=== PATIENT | female | born 1945 | race Caucasian/White ===

== ENCOUNTER 2020-05-07 10:00 | Outpatient (RCR) | payer MEDICARE, SELFPAY ==
[2016-07-09 22:55] VITALS: BMI 27.0
[2020-05-07] MEDS: COVID-19 VACC, MRNA(PFIZER)/PF 30 MCG/0.3 ML SYRINGE IM (07:45)
[2020-05-28] MEDS: COVID-19 VACC, MRNA(PFIZER)/PF 30 MCG/0.3 ML SYRINGE IM (07:34)
== END 2020-08-06 23:59 ==
LOC: IMMUN 10:00
PROVIDERS: PCP Student in an Organized Health Care Education/Training Program; Referring Provider Family Medicine; Visit Provider Family Medicine
DX: Z23 Encounter for immunization (principal)
CPT/HCPCS: 0001A; 0002A; 91300

== ENCOUNTER 2022-05-20 11:34 | Emergency (ER) | payer MEDICARE, SELFPAY ==
[2022-05-20 11:36] VITALS: BP 142/74; PULSE 83; RESP 14; TEMP 36.6; O2SAT 98; BMI 24.3
[2022-05-20 14:19] LABS: Bacteria 0 SEEN /hpf (None Seen); Mucous, Urine 0 SEEN /hpf (<or=2+); Red Blood Cells-Urine 0 SEEN /hpf (0-5); White Blood Cells 0 SEEN /hpf (0-5)
[2022-05-20 14:20] LABS: Color, Urine Yellow (Yellow); Glucose, Dipstick Normal (Normal); Ketone-Dipstick Negative (Negative); Leukocyte Esterase-Dipstick 25 /ul (Negative); Nitrite-Dipstick Negative (Negative); Occult Blood-Urine Negative /ul (Negative); Protein-Dipstick Negative (Negative); Urine Bilirubin Dipstick Negative (Negative); Urine Clarity Sl. Cloudy (Clear); Urine Urobilinogen Normal (Normal)
[2022-05-20 14:21] LABS: Absolute Neutrophil Count 4.1 X10^3/uL (2.0-7.7); Basophil# 0.05 X10^3/uL; Basophil% 0.7 % (0-1); Eosinophil# 0.15 X10^3/uL; Eosinophils% 2.1 % (0-5); Hematocrit 43.3 % (37-47); Hemoglobin 13.8 g/dL (12.0-15.0); Lymphocyte % 34.3 % (19-41); Mean Corp Hgb Conc 31.9 g/dL (32-36); Mean Corpuscular Hgb 31.2 pg (27.0-32.0); Mean Corpuscular Volume 97.7 fL (81-99); Mean Platelet Vol. 11.6 fl (6.2-12.0); Monocyte# 0.49 X10^3/uL; Monocyte% 6.7 % (0-10); NRBC Flagged by Analyzer 0 % (0-5); Neutrophil # 4.05 X10^3/uL (2.7-7.7); Neutrophil % 55.7 % (47-70); Platelet Count 214 K/mm3 (150-450); RBC Distribution Width CV 13.3 % (11.6-14.6); RBC Distribution Width SD 47.9 fl (35.1-43.9); Red Blood Count 4.43 M/mm3 (4.2-5.4); White Blood Count 7.3 K/mm3 (4.4-11.0)
[2022-05-20 14:27] LABS: Squamous Epithelial Cells - UA 0-5 SEEN /hpf (5-10)
[2022-05-20 14:28] LABS: Calcium Oxalate Crystals Ur 2+ /hpf (<or=2+)
[2022-05-20 14:36] LABS: AST(SGOT) 28 U/L (15-37); Alanine Aminotransfer ALT/SGPT 37 U/L (13-56); Albumin, Serum 3.8 g/dL (3.2-5.0); Alkaline Phosphatase 77 U/L (45-117); Anion Gap 7 (5-15); BUN 17 mg/dL (7-18); BUN/Creat Ratio 17.4 RATIO (10-20); Calcium,Total 9.6 mg/dL (8.5-10.1); Chloride 108 mmol/L (98-107); Creatinine, Serum 0.98 mg/dL (0.55-1.02); EST Glomerular Filtration Rate 59 mL/min (>60); Est Glom Filt Rate - Afr Amer 71 mL/min (>60); Estimated Creatinine Clearance 40.85 ml/min; Globulin 3.8 g/dL (2.2-4.2); Glucose 91 mg/dL (74-106); Potassium 3.4 mmol/L (3.5-5.1); Protein, Total 7.6 g/dL (6.4-8.2); Sodium Level 141 mmol/L (136-145)
--- NOTE | 2022-05-20 15:04 | EDS_ITS ---
HPI HPI - GI History of Present Illness Chief Complaint: Shortness of Breath Narrative Narrative: 76-year-old female diagnosed with typhoid on the . She developed symptoms on 08 May. 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 Patient states she had very bad diarrhea and had to be admitted to the hospital. It is believed she is on IV antibiotics while in the hospital. She was discharged home with a prescription for Augmentin. She has 2 doses left. She states that her diarrhea is improving. She does not have a lot of abdominal pain. She states that she is eating and drinking well. She tried to get follow-up and went to the urgent care and they told her that she has to come to the emergency room. She then called her primary care physician to try to get follow-up through her, and was referred back to the emergency room. Patient states he is not having any fevers anymore. She does not cough. Is not short of breath. She is actually improving. She was able to show me blood work or her inflammatory markers including ESR and sed rate were improving. PFSH PFSH Home Medications Estrace 0.1 mg PO PRN PRN VAGINAL DRYNESS 07/09/16 [History Last Taken Unknown] Ibuprofen [Motrin] 800 mg PO TID PRN PRN Pain 07/09/16 [History Last Taken 07/09/16 06:30] Prednisolone Opthl 2 - 4 drp BID PRN EAR PAIN 07/09/16 [History Last Taken Unknown] aspirin 325 mg tablet 162.5 tab PO DAILY@0800 07/09/16 [History Last Taken 07/09/16] cholecalciferol (vitamin D3) 50 mcg (2,000 unit) capsule (Vitamin D3) 2,000 unit PO DAILY 07/09/16 [History Last Taken 07/09/16] gabapentin 300 mg capsule 600 mg PO DAILY 07/09/16 [History Last Taken 07/09/16] multivitamin (Daily Multiple tablet) 1 ea PO DAILY 07/09/16 [History Last Taken 07/09/16] venlafaxine 150 mg capsule,extended release 24 hr 150 mg PO DAILY 07/09/16 [History Last Taken 07/09/16] amlodipine 5 mg tablet 5 mg PO DAILY ##60 07/10/16 [Rx Last Taken Unknown] atorvastatin 10 mg tablet 5 mg PO QHS ##60 07/10/16 [Rx Last Taken Unknown] Allergy/AdvReac Type Severity Reaction Status Date / Time acetaminophen [From Vicodin] AdvReac Nausea Verified 05/20/22 11:36 hydrocodone [From Vicodin] AdvReac Nausea Verified 05/20/22 11:36 Social History Smoking Status: Former smoker ROS ROS ED Constitutional Constitutional ED: Denies chills or fever(s) ENT ENT ED: Denies rhinorrhea or sore throat Cardiovascular Cardiovascular: Denies chest pain or palpitations Respiratory/Chest Respiratory/Chest: Denies cough or dyspnea Gastrointestinal Gastrointestinal: Reports diarrhea; Denies abdominal pain Genitourinary Genitourinary ED: Denies dysuria or hematuria Musculoskeletal Musculoskeletal: Denies arthralgias Integumentary Denies abscess or Abrasions Neurologic Neurologic: Denies headache(s) or paresthesias Psychiatric Psychiatric: Denies anxiety or depression EXAM Physical Exam Const Vital Signs: 05/20/22 11:36 05/20/22 11:56 Temperature 98 F Temperature Source Temporal Pulse Rate 83 Respiratory Rate 14 Respiratory Effort Normal Non-Labored Respiratory Depth Normal Respiratory Pattern Normal Blood Pressure 142/74 H Blood Pressure Mean 96 Pulse Ox 98 Oxygen Delivery Method Room Air Positive well nourished General Appearance ED: NAD HEENT Reports moist mucous membranes normocephalic and atraumatic Eyes PERRL and EOMs intact bilaterally Resp normal respiratory effort and clear to auscultation bilaterally Auscultation: Negative for rales, rhonchi or wheezes Cardio regular rate and regular rhythm GI non-tender Neuro CN's II-XII intact bilaterally Sensorium / Orientation: alert Motor Exam: strength 5/5 throughout Psych mental status grossly normal MDM MDM MDM Narrative Medical decision making narrative: Patient presenting for follow-up because she had typhoid she caught in [facility]. She states she is improving physically. She is able to eat and drink. Her diarrhea is improving. For to the emergency room. She is unsure why. We did talk at length. Basic lab work is normal including her CBC and CMP. No leukocytosis, dehydration. The only abnormality is a potassium of 3.4 which is inconsequential. Urinalysis negative for infection. She has completely normal vital signs and she is afebrile. I spoke with Dr. Cary from infectious disease and he stated that when the diarrhea is over she is not infectious to use normal handwashing procedures after using the restroom. If there is return of her diarrhea or concern she can follow-up with him. Return precautions were discussed. Patient to continue taking her Augmentin. Impression: 1. History of typhoid Lab Data Labs: Laboratory Results - last 24 hr 05/20/22 05/20/22 05/20/22 14:15 14:15 14:15 WBC 7.3 RBC 4.43 Hgb 13.8 Hct 43.3 MCV 97.7 MCH 31.2 MCHC 31.9 L RDW Std Deviation 47.9 H RDW Coeff of Milvia 13.3 Plt Count 214 MPV 11.6 Immature Gran % (Auto) 0.500 Neut % (Auto) 55.7 Lymph % (Auto) 34.3 [place] % (Auto) 6.7 Eos % (Auto) 2.1 Baso % (Auto) 0.7 Absolute Neuts (auto) 4.1 Absolute Lymphs (auto) 2.50 Nucleated RBC % 0 Sodium 141 Potassium 3.4 L Chloride 108 H Carbon Dioxide 26.0 Anion Gap 7 BUN 17 Creatinine 0.98 Estim Creat Clear Calc 40.85 Est GFR (MDRD) Af Amer 71 Est GFR (MDRD) Non-Af 59 L BUN/Creatinine Ratio 17.4 Glucose 91 Calcium 9.6 Total Bilirubin 0.60 AST 28 ALT 37 Alkaline Phosphatase 77 Total Protein 7.6 Albumin 3.8 Globulin 3.8 Albumin/Globulin Ratio 1.0 Urine Color Yellow Urine Clarity Sl. Cloudy Urine pH 7.0 Ur Specific [place] 1.010 Urine Protein Negative Urine Glucose (UA) Normal Urine Ketones Negative Urine Occult Blood Negative Urine Nitrite Negative Urine Bilirubin Negative Urine Urobilinogen Normal Ur Leukocyte Esterase 25 H Urine RBC 0 SEEN Urine WBC 0 SEEN Ur Squamous Epith Cells 0-5 SEEN Calcium Oxalate Crystal 2+ Urine Bacteria 0 SEEN Urine Mucus 0 SEEN Discharge Plan Triage Chief Complaint: Shortness of Breath ED Provider: Elijah Ramirez Dx/Rx/DC Orders Instructions: ED Typhoid Fever (Adult) Prescriptions: No Action multivitamin [Daily Multiple] 1 EACH tablet 1 ea PO DAILY Label Comments: SUPPLEMENT aspirin 325 MG tablet 162.5 tab PO DAILY@0800 Label Comments: HEALTH MAINTENANCE 1/2 PILL venlafaxine 150 MG Cap.Er.24h 150 mg PO DAILY Label Comments: MOOD gabapentin 300 MG capsule 600 mg PO DAILY Label Comments: NERVE PAIN cholecalciferol (vitamin D3) [Vitamin D3] 2,000 UNIT capsule 2,000 unit PO DAILY Label Comments: SUPPLEMENT Estrace 0.1 MG 0.1 mg PO PRN PRN (Reason: VAGINAL DRYNESS) Label Comments: VAGINAL DRYNESS Ibuprofen [Motrin] 800 MG tablet 800 mg PO TID PRN PRN (Reason: Pain) Label Comments: PAIN Prednisolone Opthl 1 DOSE 2 - 4 drp Each Ear BID PRN (Reason: EAR PAIN) Label Comments: EAR PAIN amlodipine 5 MG tablet 5 mg PO DAILY Qty: 60 0RF atorvastatin 10 MG tablet 5 mg PO QHS Qty: 60 0RF Primary Care Provider: Mikael Hardy Referrals: Mikael Hardy DO [Primary Care Provider] - Andrez Townsend MD [Med Staff - Active Staff] - As Needed Disposition Disposition: Home, Self Care
== END 2022-05-20 17:19 | disposition home or self-care (01) ==
PROVIDERS: Emergency Provider Student in an Organized Health Care Education/Training Program; PCP Student in an Organized Health Care Education/Training Program; Visit Provider Student in an Organized Health Care Education/Training Program
DX: R06.02 Shortness of breath (principal); A01.00 Typhoid fever, unspecified; Z87.891 Personal history of nicotine dependence; Z79.82 Long term (current) use of aspirin
CPT/HCPCS: 80053; 81001; 85025; 99284; A4216

== ENCOUNTER 2023-10-08 08:52 | Observation (INO) | payer MEDICARE, SELFPAY ==
[2023-10-08] VITALS (17 sets, daily range): BP systolic 95–197; BP diastolic 56–160; PULSE 69–131; RESP 16–20; TEMP 36.4–37.2; O2SAT 93–99; BMI 23.7; BMI 24.5
--- NOTE | 2023-10-08 09:12 | CT_ITS ---
STUDY: CTA CHEST REASON FOR EXAM: Female, 78 years old. Dyspnea, pleuritic chest pain, moderate to high pr -- Probability PE RADIATION DOSAGE (If Supplied By Facility): CTDIvol = ( 5.28 ) mGy, DLP = ( 147.23 ) mGycm TECHNIQUE: The examination was performed with the intravenous administration of IV 75mL Isovue-370. Post-processing of the angiographic images was performed, with multiplanar reformation and 3D reconstruction. Individualized dose optimization techniques were used for this CT. COMPARISON: None. FINDINGS: Normal enhancement of the main pulmonary artery and right and left pulmonary arteries. Normal enhancement of the bilateral peripheral pulmonary arteries. There is no demonstrated pulmonary embolism. There is atherosclerotic calcification of the aortic arch with tortuosity. There is no demonstrated aortic dissection. There are calcifications of the coronary arteries. Normal mediastinum. Normal hilar regions. Normal visualized trachea and bronchi. The lungs are well expanded. There is emphysema of the lungs. There is lower lung atelectasis. Normal pleura. Normal chest wall structures. There are degenerative changes of thoracic spine. There is a probable small hiatal hernia. CT/CTA Chest W/WO Contrast IMPRESSION: CTA chest examination, without a demonstrated pulmonary embolism or arterial dissection. Emphysema with lower lung atelectasis. Probable hiatal hernia. Electronically Signed: Goran Virgen MD at 11:03 EDT ,
--- NOTE | 2023-10-08 09:12 | EKG12_ITS ---
Test Reason : SOB Blood Pressure : / mmHG Vent. Rate : 096 BPM Atrial Rate : 096 BPM P-R Int : 172 ms QRS Dur : 084 ms QT Int : 322 ms P-R-T Axes : 061 027 048 degrees QTc Int : 406 ms Normal sinus rhythm Low voltage QRS Borderline ECG Confirmed by MEDHAT DRAKE, LUIZ ([id number]), editor producer KB BALL ([id number]) on 10/11/2023 6:34:05 AM Referred By: PAU Confirmed By:ABNER MELÉNDEZ MD
[2023-10-08 09:33] LABS: Hematocrit 37.8 % (37-47); Hemoglobin 12.2 g/dL (12.0-15.0); Mean Corp Hgb Conc 32.3 g/dL (32-36); Mean Corpuscular Hgb 31.8 pg (27.0-32.0); Mean Corpuscular Volume 98.4 fL (81-99); Mean Platelet Vol. 13.4 fl (6.2-12.0); Platelet Count 142 K/mm3 (150-450); RBC Distribution Width CV 13.2 % (11.6-14.6); RBC Distribution Width SD 47.4 fl (35.1-43.9); Red Blood Count 3.84 M/mm3 (4.2-5.4)
[2023-10-08 10:01] LABS: Anion Gap 5 (5-15); BUN 18 mg/dL (7-18); BUN/Creat Ratio 17.6 RATIO (10-20); Calcium,Total 9.2 mg/dL (8.5-10.1); Chloride 103 mmol/L (98-107); Creatinine, Serum 1.02 mg/dL (0.55-1.02); EST Glomerular Filtration Rate 55 mL/min (>60); Est Glom Filt Rate - Afr Amer 67 mL/min (>60); Estimated Creatinine Clearance 37.99 ml/min; Glucose 94 mg/dL (74-106); Potassium 3.7 mmol/L (3.5-5.1); Sodium Level 139 mmol/L (136-145); Troponin-I HS (w/2H Reflex) 297 pg/mL (3.0-54.0)
--- NOTE | 2023-10-08 10:03 | ED.RN ---
DR. SIMPSON NOTIFIED OF TROPONIN 297 BY RN
--- NOTE | 2023-10-08 10:40 | ED.VIS.DYS ---
HPI History of Present Illness Chief Complaint: Shortness of Breath Detail of Chief Complaint: Pleuritic chest pain and shortness of breath Onset/Context/Timing Onset: Days (Wednesday after returning from [place]) Context: sudden Timing: Intermittent and Waxes and wanes Quality: Positive for Dyspnea on exertion; Negative for Orthopnea, PND or Wheezing Current Severity: Mild Maximum Severity: Moderate Worsened by: Exertion; Not Worsened By Lying flat or Coughing Relieved by: Nothing Associated Symptoms Negative for cough, rhinorrhea, post nasal drip, ear pain, fever, sore throat, subjective, chills, sweats, clear sputum, white sputum, yellow sputum or green sputum Chest Pain: Positive for Intermittent and Pleuritic Narrative Narrative: Patient is an 78-year-old woman. She has history of hypertension who returned from [place] this past Wednesday. She developed shortness of breath pleuritic pain. She denies history of coronary artery disease. She denies history of PE or DVT. She denies leg pain, swelling discoloration. She denies fever, chills night sweats. She denies rhinorrhea, congestion, postnasal drainage sore throat. She denies cough or sputum production. She denies abdominal pain, nausea, vomiting or diarrhea. Patient's risk factors for coronary disease are hypertension hypercholesterolemia. PE Risk Factors: Positive for Recent travel; Negative for Cancer, OCP + Smoking + > 35, Prior DVT or PE, Recent immobilization or Recent surgery Prior similar symptoms: No Recent Illness/Hospitalization: No [facility] Medical History Hypertension High blood cholesterol Home Medications ?Medication ?Instructions ?Recorded ?Last Taken ?Type cholecalciferol (vitamin D3) 50 2,000 unit PO DAILY 07/09/16 10/08/23 History mcg (2,000 unit) capsule (Vitamin D3) gabapentin 300 mg capsule 600 mg PO DAILY 07/09/16 10/08/23 History venlafaxine 150 mg 150 mg PO DAILY 07/09/16 10/08/23 History capsule,extended release 24 hr amlodipine 10 mg tablet 10 mg PO DAILY 10/08/23 10/08/23 History aspirin 81 mg tablet,delayed 81 mg PO MOWEFR 10/08/23 10/08/23 History release (Adult Aspirin Regimen) atorvastatin 10 mg tablet 5 mg PO DAILY 10/08/23 10/08/23 History atovaquone 250 mg-proguanil 100 mg 1 tab PO DAILY 10/08/23 10/08/23 History tablet calcium carbonate 1,200 mg PO DAILY 10/08/23 10/08/23 History estradiol 0.01% (0.1 mg/gram) 1 appful vaginal MOWEFR 10/08/23 10/06/23 History vaginal cream multivitamin (Daily Multi-Vitamin 1 tab PO DAILY 10/08/23 Unknown History tablet) trospium 60 mg capsule,extended 60 mg PO DAILY 10/08/23 10/08/23 History release 24 hr Allergy/AdvReac Type Severity Reaction Status Date / Time acetaminophen (From Vicodin) AdvReac Nausea Verified 05/20/22 11:36 hydrocodone (From Vicodin) AdvReac Nausea Verified 05/20/22 11:36 Social History Smoking Status: Former smoker ROS ROS ED Constitutional Constitutional ED: Denies chills, fever(s), sweats or weight loss Eyes Eyes: Denies blurry vision or change in vision ENT ENT ED: Denies ear pain or rhinorrhea Cardiovascular Cardiovascular: Reports chest pain; Denies orthopnea, palpitations, paroxysmal nocturnal dyspnea or racing heartbeat Respiratory/Chest Respiratory/Chest: Reports dyspnea and dyspnea on exertion; Denies cough, orthopnea or paroxysmal nocturnal dyspnea Gastrointestinal Gastrointestinal: Denies abdominal pain, diarrhea, melena, nausea or vomiting Genitourinary Genitourinary ED: Denies dysuria, hematuria or urinary frequency Musculoskeletal Musculoskeletal: Denies arthralgias or myalgias Integumentary Denies rash Neurologic Neurologic: Denies headache(s) or paresthesias Psychiatric Psychiatric: Denies anxiety or depression Endocrine Endocrinology: Denies cold intolerance or heat intolerance Hematologic/Lymphatic Hematologic/Lymphatic: Denies easy bleeding or easy bruising EXAM Physical Exam Const Vital Signs: 10/08/23 08:54 10/08/23 08:58 10/08/23 09:33 Temperature 97.6 F L 97.9 F Temperature Source Temporal Temporal Pulse Rate 99 96 Respiratory Rate 18 20 H Respiratory Effort Short of Breath Respiratory Depth Normal Respiratory Pattern Normal Blood Pressure 133/58 H 107/61 Blood Pressure Mean 83 76 Pulse Ox 99 98 Oxygen Delivery Method Room Air Room Air Room Air 10/08/23 09:57 10/08/23 10:00 10/08/23 10:53 Temperature 98.4 F 98.4 F Temperature Source Oral Oral Pulse Rate 92 93 116 H Respiratory Rate 18 20 H 18 Respiratory Effort Respiratory Depth Respiratory Pattern Blood Pressure 118/69 105/63 189/158 H Blood Pressure Mean 85 77 168 Pulse Ox 94 94 94 Oxygen Delivery Method Room Air Room Air Room Air 10/08/23 11:00 10/08/23 12:00 10/08/23 12:00 Temperature 98.4 F 98.1 F Temperature Source Oral Oral Pulse Rate 131 H 121 H 121 H Respiratory Rate 20 H 20 H 20 H Respiratory Effort Respiratory Depth Respiratory Pattern Blood Pressure 197/160 H 109/82 H 109/82 H Blood Pressure Mean 172 91 91 Pulse Ox 94 93 93 Oxygen Delivery Method Room Air Room Air Room Air Positive well nourished and well developed Constitutional Narrative: Patient has conversational dyspnea. Her respiratory rate is greater than 18/20 that was documented. General Appearance ED: well developed; Negative for pallor HEENT Reports moist mucous membranes atraumatic; Negative for tenderness Eyes PERRL and EOMs intact bilaterally General Eye ED: Negative for pale conjunctiva or scleral icterus Neck no lymphadenopathy, supple, no meningeal signs and no JVD Neck Narrative: Trachea is midline. There is no carotid bruits. Resp No normal respiratory effort and clear to auscultation bilaterally Cardio regular rate, regular rhythm, S1 normal heart sound, S2 normal heart sound and no murmurs GI non-tender, non-distended and no masses Back/Spine no CVA tenderness Extremity normal to inspection Extremity Narrative: There is no asymmetry, swelling, discoloration, leg vein distention, palpable cords or tenderness along the distribution of the deep venous system. General Extremety ED: Negative for edema or tenderness General Extremity: Negative for edema Neuro oriented x3 and CN's II-XII intact bilaterally Adilson Coma Scale: document GCS findings Spontaneous Obeys Commands Oriented 15 Sensorium / Orientation: alert Psych mental status grossly normal Skin no wounds and skin turgor normal General Skin Exam: Negative for jaundice or pallor Lesions: no lesions Rashes: no rashes MDM MDM MDM Narrative Medical decision making narrative: Differential diagnosis is PE versus cardiac. Since she is 78 years of age she may not have typical chest pain. Need to rule out PE. There is no evidence of PE then need to consider coronary disease. Workup included CBC, basic metabolic panel and troponin. D-dimer was not obtained since she had a pretest probability for PE at moderate to high. During her ER course nurse noted heart rate of 116 was irregular. EKG was obtained and her rhythm now is atrial fibrillation/flutter with variable rate. Rate is 101. Patient was anticoagulated with heparin since my concern is this is cardiac and her dyspnea is an anginal equivalent since on my review of the CTA there is no obvious PE. Awaiting formal read by radiologist. Patient is complaining of pleuritic pain. This may represent Adan syndrome. Will give 40 mg of Solu-Medrol IV push. Lab Data Attestation: I reviewed the patient's lab results. Lab results narrative: CBC is unremarkable. Electrolyte panel is unremarkable. Troponin is elevated 297. Labs: Laboratory Results - last 24 hr 10/08/23 10/08/23 09:20 10:49 WBC 10.0 RBC 3.84 L Hgb 12.2 Hct 37.8 MCV 98.4 MCH 31.8 MCHC 32.3 RDW Std Deviation 47.4 H RDW Coeff of Milvia 13.2 Plt Count 142 L MPV 13.4 H PT 16.1 H INR 1.3 APTT 40.2 H Sodium 139 Potassium 3.7 Chloride 103 Carbon Dioxide 31.0 Anion Gap 5 BUN 18 Creatinine 1.02 Estim Creat Clear Calc 37.99 Est GFR (MDRD) Af Amer 67 Est GFR (MDRD) Non-Af 55 L BUN/Creatinine Ratio 17.6 Glucose 94 Calcium 9.2 Troponin I High Sens 297 H* Radiography Chest X-Ray - ED: 1 View and Read by ED Physician Diagnostic Testing: Clinical Impression(s) from Imaging Studies Chest CTA 10/08/23 09:12 IMPRESSION: CTA chest examination, without a demonstrated pulmonary embolism or arterial dissection. Emphysema with lower lung atelectasis. Probable hiatal hernia. Electronically Signed: Goran Virgen MD at 11:03 EDT , Documented MDM portion of the EMR EKG Initial EKG: Attestation: I personally reviewed and interpreted this EKG as follows: Interpretation: Sinus Rhythm (Rate is 96. There is low voltage. TX interval is 172 ms. QS duration 84 ms. QT duration 322 ms. [place] is normal. This was obtained at 0913) Follow-up EKG: Interpretation: Atrial Flutter (Rate is 101 with a variable block. There is no acute ischemic changes noted. QRS duration 82 ms. QT duration is 310 ms. [place] is normal.) Differential Diagnosis Abdominal Pain: Negative for Appendicitis, Cholecystitis, Pancreatitis, Bowel obstruction or UTI Management Discussion w/another healthcare provider: Hospitalist and Lamination Technician Critical Care Time Critical Care Time: Yes Critical care time (excluding procedures): 30-74 minutes (33), Including time spent: (History, physical, documentation, independent interpretation of EKG x 2, initiation of treatment for non-ST elevation OR), Discussing w/Patient &/or Family/Tax Examining Technician, Discussing w/Consultants and Arranging Admission or Transfer Discharge Plan Dx/Rx/DC Orders Clinical Impression: Non-ST elevated myocardial infarction, Atrial fib/flutter, transient, Acute dyspnea, Pleuritic chest pain Disposition Disposition: Acute Care Hospital [facility]
[2023-10-08] MEDS: Aspirin 81 MG TAB.CHEW 243 MG PO (10:57)
[2023-10-08] MEDS: Heparin Injection (Vial) 5,000 UNIT/ML VIAL 4000 UNIT IV (11:09)
[2023-10-08 11:15] LABS: International Normalized Ratio 1.3; Prothrombin Time (Protime)PT. 16.1 SECONDS (11.7-14.9)
[2023-10-08 11:17] LABS: Partial Thromboplast Time 40.2 Seconds (24.1-36.2)
[2023-10-08 11:26] LABS: Reflex Troponin-HS? (from REC) Y
--- NOTE | 2023-10-08 11:37 | ED.RN ---
paged hospitalist 17 min ago. repaged now.
[2023-10-08] MEDS: HEPARIN/D5w 25,000 UNITS 25,000 UNITS/250 ML IV.SOLN. 8 UNITS CONT INF (11:38)
[2023-10-08 12:08] LABS: Troponin-I HS 239 pg/mL (3.0-54.0)
--- NOTE | 2023-10-08 12:13 | HP.PCM.HOS_ITS ---
HPI - General General Date of Admission: 10/08/23 Date of Service: 10/08/23 Chief Complaint: chest pain HPI Narrative HERMINIA RAHMAN, is a 78 F with a past medical history as outlined was admitted through the ED on 10/08/2023 with a complaint of retrosternal burning chest pain. 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 She started having retrosternal burning chest pain and thought it was due to GERD so she took a lot of Tums for it but it was not improving. She denied having similar symptoms while she was in [facility]. She denied any palpitations, shortness of breath, dizziness, nausea or vomiting or any other symptoms. Her symptoms were persistent so she decided to come into the ED. She denies any history of heart disease and any history of stents insertion. Review of systems otherwise negative. Vitals in the ED were blood pressure 105/55, pulse rate of 74, respiratory rate of 18 and temperature of 98.8 Fahrenheit. She was saturating 98% on room air. CBC showed WBC of 10 with hemoglobin of 12.2 and platelets of 142. INR was 1.3. Chemistry was unremarkable. Initial troponin was 297 and subsequently the delta trended down to 239. EKG showed A-fib with RVR. At the time I had seen her her heart rate was up in the 140s but subsequently came down to 74. She has been admitted to be managed for new onset A-fib with RVR and non-STEMI. [facility] Medical History Hypertension High blood cholesterol Home Medications ?Medication ?Instructions ?Recorded ?Last Taken ?Type cholecalciferol (vitamin D3) 50 2,000 unit PO DAILY 07/09/16 10/08/23 History mcg (2,000 unit) capsule (Vitamin D3) gabapentin 300 mg capsule 600 mg PO DAILY 07/09/16 10/08/23 History venlafaxine 150 mg 150 mg PO DAILY 07/09/16 10/08/23 History capsule,extended release 24 hr amlodipine 10 mg tablet 10 mg PO DAILY 10/08/23 10/08/23 History aspirin 81 mg tablet,delayed 81 mg PO MOWEFR 10/08/23 10/08/23 History release (Adult Aspirin Regimen) atorvastatin 10 mg tablet 5 mg PO DAILY 10/08/23 10/08/23 History atovaquone 250 mg-proguanil 100 mg 1 tab PO DAILY 10/08/23 10/08/23 History tablet calcium carbonate 1,200 mg PO DAILY 10/08/23 10/08/23 History estradiol 0.01% (0.1 mg/gram) 1 appful vaginal MOWEFR 10/08/23 10/06/23 History vaginal cream multivitamin (Daily Multi-Vitamin 1 tab PO DAILY 10/08/23 Unknown History tablet) trospium 60 mg capsule,extended 60 mg PO DAILY 10/08/23 10/08/23 History release 24 hr Allergy/AdvReac Type Severity Reaction Status Date / Time acetaminophen (From Vicodin) AdvReac Nausea Verified 10/08/23 13:02 hydrocodone (From Vicodin) AdvReac Nausea Verified 10/08/23 13:02 Social History Smoking Status: Former smoker ROS Constitutional Constitutional: Reports fatigue and malaise; Denies anorexia, chills, fever(s) or weakness Eyes Eyes: Denies change in vision ENT HEENT: Denies dysphagia, headache(s) or sore throat Cardiovascular Cardiovascular: Reports chest pain; Denies dyspnea on exertion, edema, lightheadedness, orthopnea, palpitations, paroxysmal nocturnal dyspnea, rapid heart rate or syncope Respiratory/Chest Respiratory/Chest: Denies cough, dyspnea, hemoptysis, shortness of breath at rest or shortness of breath with exertion Gastrointestinal Gastrointestinal: Denies abdominal pain, constipation, diarrhea, hematochezia, nausea or vomiting Genitourinary Genitourinary: Denies burning urination or dysuria Musculoskeletal Musculoskeletal: Denies arthralgias Neurologic Neurologic: Denies confusion, dizziness, focal weakness, headache(s), numbness, seizures or syncope Psychiatric Psychiatric: Denies anxiety or depression Endocrine Endocrinology: Denies change in body appearance Hematologic/Lymphatic Hematologic/Lymphatic: Denies anemia Vital Signs Vital Signs Vital Signs: 10/08/23 08:54 10/08/23 08:58 10/08/23 09:33 Temperature 97.6 F L 97.9 F Temperature Source Temporal Temporal Pulse Rate 99 96 Respiratory Rate 18 20 H Respiratory Effort Short of Breath Respiratory Depth Normal Respiratory Pattern Normal Blood Pressure 133/58 H 107/61 Blood Pressure Mean 83 76 Pulse Ox 99 98 Oxygen Delivery Method Room Air Room Air Room Air 10/08/23 09:57 10/08/23 10:00 10/08/23 10:53 Temperature 98.4 F 98.4 F Temperature Source Oral Oral Pulse Rate 92 93 116 H Respiratory Rate 18 20 H 18 Respiratory Effort Respiratory Depth Respiratory Pattern Blood Pressure 118/69 105/63 189/158 H Blood Pressure Mean 85 77 168 Pulse Ox 94 94 94 Oxygen Delivery Method Room Air Room Air Room Air 10/08/23 11:00 10/08/23 12:00 10/08/23 12:00 Temperature 98.4 F 98.1 F Temperature Source Oral Oral Pulse Rate 131 H 121 H 121 H Respiratory Rate 20 H 20 H 20 H Respiratory Effort Respiratory Depth Respiratory Pattern Blood Pressure 197/160 H 109/82 H 109/82 H Blood Pressure Mean 172 91 91 Pulse Ox 94 93 93 Oxygen Delivery Method Room Air Room Air Room Air Weight Weight: 138 lb 6.4 oz Body Mass Index (BMI) 23.7 Physical Exam Const alert, oriented x3 and no apparent distress General Appearance: cooperative HEENT normocephalic, head/scalp atraumatic, hearing grossly normal bilaterally, moist oral mucous membranes and oropharynx normal Mouth: oral and palatal mucosa normal Eyes PERRL, EOMs intact bilaterally and conjunctivae normal Neck no lymphadenopathy and supple Resp normal respiratory effort, no retractions, no use of accessory muscles and clear to auscultation bilaterally Cardio S1 normal heart sound, S2 normal heart sound and no murmurs Cardio Narrative: afib, was initially in RVR, and subsequently rate normalised. GI normal to inspection, nondistended, normoactive bowel sounds, soft to palpation, non-tender and non-distended Extremity normal to inspection, full ROM and no clubbing, cyanosis or edema Neuro oriented x3, CN's II-XII intact bilaterally, moves all extremities and no focal motor deficits Sensorium / Orientation: awake and alert Motor Exam: strength 5/5 throughout Psych affect normal Results Lab / Micro Data 10/08/23 09:20 10/08/23 09:20 Labs: Laboratory Results - last 24 hr 10/08/23 09:20: WBC 10.0, RBC 3.84 L, Hgb 12.2, Hct 37.8, MCV 98.4, MCH 31.8, MCHC 32.3, RDW Std Deviation 47.4 H, RDW Coeff of Milvia 13.2, Plt Count 142 L, MPV 13.4 H, Sodium 139, Potassium 3.7, Chloride 103, Carbon Dioxide 31.0, Anion Gap 5, BUN 18, Creatinine 1.02, Estim Creat Clear Calc 37.99, Est GFR (MDRD) Af Amer 67, Est GFR (MDRD) Non-Af 55 L, BUN/Creatinine Ratio 17.6, Glucose 94, Calcium 9.2, Troponin I High Sens 297 H* 10/08/23 10:49: PT 16.1 H, INR 1.3, APTT 40.2 H 10/08/23 11:32: Troponin I High Sens 239 H* Imaging Radiology Impression Chest CTA 10/08/23 09:12 IMPRESSION: CTA chest examination, without a demonstrated pulmonary embolism or arterial dissection. Emphysema with lower lung atelectasis. Probable hiatal hernia. Electronically Signed: Goran Virgen MD at 11:03 EDT , Assessment & Plan Assessment/Plan (1) Atrial fib/flutter, transient: (2) Non-ST elevated myocardial infarction: PLAN: Plan #Afib with RVR * Admitted with a complaint of retrosternal burning chest pain which she thought was due to GERD. Found to be in A-fib with RVR on admission. * Rate subsequently normalized. * Initial troponin was 297 and trended down to 239. * Chest x-ray showed acute cardiopulmonary process. * Will check TSH * Consult cardiology. * Get 2D echo * Started on oral beta-doris as heart rate has improved. * Started on heparin drip #Non-STEMI * Patient did complain of retrosternal burning chest pain which sounds like angina. * Initial troponin was elevated at 297 but trended down to 239. This may be a type II non-STEMI due to the A-fib with RVR which is what could also have caused her burning chest symptoms. * 2D echo ordered. Started on p.o. aspirin * Cardiology consulted. Await recs. * #Hypertension: On amlodipine. IV hydralazine as needed #Hyperlipidemia: On statin. Will increase statin dose from 5 mg daily to 40 mg due to the non-STEMI. Check lipid panel. #Depression: On venlafaxine DVT prophylaxis: On heparin drip CODE STATUS: Full code * Patient counseled extensively about different types of CODE STATUS including full code, DNR CCA and DNR CCA. Patient elects to be full code. Total [id number] time 17 minutes. Charges/Coding Visit Charges Inpatient E&M: 02068 Init Hosp L3 Procedures Hospitalists Procedures: 67888 Advncd Care Plan 30 Min
--- NOTE | 2023-10-08 12:46 | ECHOD_ITS ---
Reason For Study: Chest Pain Procedure This was a 2D Doppler, Color Flow transthoracic echocardiogram. Exam performed portable in patient room. Left Ventricle Normal LV size. The estimated ejection fraction is 60 %. No evidence for diastolic dysfunction. No regional wall motion abnormalities noted. Right Ventricle Normal RV size. Normal systolic function. Atria The left and right atria are normal. No doppler evidence for ASD. Mitral Valve There is moderate mitral annular calcification. There is no mitral valve stenosis. No mitral valve insufficiency. Tricuspid Valve There is no tricuspid stenosis. Trivial tricuspid valve insufficiency. Aortic Valve Trisinus/trileaflet aortic valve. Aortic sclerosis, no stenosis. There is no aortic stenosis. No aortic valve insufficiency. Pulmonic Valve There is no pulmonic valvular stenosis. No pulmonic valve insufficiency. Great Vessels Normal aortic root. Pericardium/Pleural No pericardial effusion. MMode/2D Measurements & Calculations LVIDd: 3.5 cm IVSd: 1.0 cm Ao root diam: 3.1 cm LVIDs: 2.5 cm LVPWd: 0.96 cm LA dimension: 3.7 cm RVDd: 3.5 cm FS: 29.3 % LAV(MOD-bp): 56.2 ml LVAd ap4: 22.0 cm2 SV(MOD-sp4): 29.7 ml LAV(MOD-bp) Indexed: 33.6 ml/m2 LVLd ap4: 7.0 cm LAV(MOD-sp2): 57.0 ml EDV(MOD-sp4): 56.6 ml LAV(MOD-sp4): 55.0 ml EDV(sp4-el): 58.9 ml LVAs ap4: 14.6 cm2 LVLs ap4: 6.5 cm ESV(MOD-sp4): 26.9 ml ESV(sp4-el): 27.9 ml EF(MOD-sp4): 52.4 % EF(sp4-el): 52.7 % SV(sp4-el): 31.0 ml LA A4 area: 19.3 cm2 RA A4 area: 13.8 cm2 TAPSE: 1.8 cm Time Measurements MV dec time: 0.22 sec Doppler Measurements & Calculations MV E max sony: 84.5 cm/sec Lat Peak E' Sony: 8.7 cm/sec Med Peak E' Sony: 8.8 cm/sec MV A max sony: 87.0 cm/sec E/E' lat: 9.7 E/E' med: 9.6 MV E/A: 0.97 MV V2 max: 93.5 cm/sec MV P1/2t max sony: 92.4 cm/sec Ao V2 max: 122.0 cm/sec MV max P.5 mmHg MV P1/2t: 68.0 msec Ao max P.0 mmHg MV V2 mean: 57.9 cm/sec MV dec slope: 397.8 cm/sec2 Ao V2 mean: 86.8 cm/sec MV mean P.6 mmHg Ao mean P.4 mmHg MV V2 VTI: 20.3 cm MVA(P1/2t): 3.2 cm2 Ao V2 VTI: 24.2 cm AV (velocity ratio): 0.83 LV V1 max: 95.7 cm/sec PA V2 max: 88.4 cm/sec TR max sony: 229.4 cm/sec LV V1 max P.7 mmHg PA max PG (full): 0.73 mmHg TR max P.1 mmHg LV V1 mean P.4 mmHg PA V2 mean: 67.5 cm/sec LV V1 mean: 75.2 cm/sec PA mean PG (full): 0.52 mmHg LV V1 VTI: 20.0 cm ECHO/Echo Complete Interpretation Summary The estimated ejection fraction is 60 %. No evidence for diastolic dysfunction. Ordering Physician: Shannan Licea Performed By: Jayesh Joyner RCS
--- NOTE | 2023-10-08 12:46 | EKG12_ITS ---
Test Reason : REPEAT Blood Pressure : / mmHG Vent. Rate : 101 BPM Atrial Rate : 394 BPM P-R Int : 000 ms QRS Dur : 082 ms QT Int : 310 ms P-R-T Axes : 000 032 000 degrees QTc Int : 401 ms Atrial flutter with variable A-V block Abnormal ECG Confirmed by MEDHAT DRAKE, LUIZ ([id number]), news editor KB BALL ([id number]) on 10/11/2023 6:34:58 AM Referred By: Confirmed By:ABNER MELÉNDEZ MD
--- NOTE | 2023-10-08 13:44 | EKG12_ITS ---
Test Reason : Blood Pressure : / mmHG Vent. Rate : 091 BPM Atrial Rate : 091 BPM P-R Int : 170 ms QRS Dur : 084 ms QT Int : 344 ms P-R-T Axes : 056 025 041 degrees QTc Int : 423 ms Normal sinus rhythm Normal ECG When compared with ECG of 08-OCT-2023 10:42, MANUAL COMPARISON REQUIRED, DATA IS UNCONFIRMED Confirmed by MEDHAT DRAKE, LUIZ ([id number]), school photograph editor KB BALL ([id number]) on 10/11/2023 10:18:37 AM Referred By: ILYA Confirmed By:ABNER MELÉNDEZ MD
[2023-10-08 16:26] LABS: Thyroid Stim Hormone (TSH) 0.58 uIU/mL (0.358-3.74); Troponin-I HS 242 pg/mL (3.0-54.0)
[2023-10-08] MEDS: Metoprolol Tartrate 25 MG Tablet PO (16:55)
[2023-10-08] MEDS: Ondansetron 4 MG/2 ML Vial IV (16:55)
[2023-10-08] MEDS: 0.9% Saline Lock 10 ML Syringe IV ×2 (16:55→18:00)
--- NOTE | 2023-10-08 17:26 | PCM.CONS.C ---
Assessment & Plan Assessment/Plan (1) Pleuritic chest pain: PLAN: Appears to be noncardiac in etiology. Patient's troponin elevation could be related to her A-fib with RVR. EF is preserved with no regional wall motion abnormalities. Reasonable to check a Lexiscan stress test. Patient has been sleeping sitting up due to epigastric discomfort. However she does have bibasal crackles as well. She states that she has been retaining fluid. Will give 1 dose of IV Lasix (2) Atrial fib/flutter, transient: PLAN: Reasonable to start with metoprolol at this time. Recommend Eliquis 5 mg p.o. twice daily. Recommend stopping Plavix in case Eliquis is being started. (3) Non-ST elevated myocardial infarction: HPI Consult Data Date of Consult: 10/08/23 HPI Narrative Reason for Consultation: Heartburn HPI Narrative: HERMINIA RAHMAN, is a 78 F who presents with heartburn symptoms that have been unrelenting. In the ER patient was found to be in A-fib with RVR. She is currently in sinus rhythm. However she continues to have this epigastric discomfort. The discomfort is worse on deep inspiration. Patient states that for the last 4-5 days she has been sleeping sitting up because of her heartburn symptoms. She denies any orthopnea, shortness of breath, chest pain, PND etc. Patient's troponin was slightly elevated. 2D echo revealed preserved EF with no regional wall motion abnormalities Review of systems: All systems reviewed. All this is negative except that in the HPI [facility] Medical History Hypertension High blood cholesterol Home Medications ?Medication ?Instructions ?Recorded ?Last Taken ?Type cholecalciferol (vitamin D3) 50 2,000 unit PO DAILY 07/09/16 10/08/23 History mcg (2,000 unit) capsule (Vitamin D3) gabapentin 300 mg capsule 600 mg PO DAILY 07/09/16 10/08/23 History venlafaxine 150 mg 150 mg PO DAILY 07/09/16 10/08/23 History capsule,extended release 24 hr amlodipine 10 mg tablet 10 mg PO DAILY 10/08/23 10/08/23 History aspirin 81 mg tablet,delayed 81 mg PO MOWEFR 10/08/23 10/08/23 History release (Adult Aspirin Regimen) atorvastatin 10 mg tablet 5 mg PO DAILY 10/08/23 10/08/23 History atovaquone 250 mg-proguanil 100 mg 1 tab PO DAILY 10/08/23 10/08/23 History tablet calcium carbonate 1,200 mg PO DAILY 10/08/23 10/08/23 History estradiol 0.01% (0.1 mg/gram) 1 appful vaginal MOWEFR 10/08/23 10/06/23 History vaginal cream multivitamin (Daily Multi-Vitamin 1 tab PO DAILY 10/08/23 Unknown History tablet) trospium 60 mg capsule,extended 60 mg PO DAILY 10/08/23 10/08/23 History release 24 hr Allergy/AdvReac Type Severity Reaction Status Date / Time acetaminophen (From Vicodin) AdvReac Nausea Verified 10/08/23 13:02 hydrocodone (From Vicodin) AdvReac Nausea Verified 10/08/23 13:02 Social History Smoking Status: Former smoker Physical Exam Const alert and oriented x3 HEENT normocephalic Eyes no scleral icterus Resp Resp Narrative: Bibasal crackles Cardio regular rate and regular rhythm Extremity no pedal edema Skin no rashes or lesions noted Risk Stratification Risk Stratification Applicable: No Charges/Coding Visit Charges Inpatient E&M: 41582 Init Hosp L2 Objective Data Vital Signs: Vital Signs Temp Pulse Resp BP Pulse Ox O2 Del Method 98.8 F 89 18 105/65 98 Room Air 10/08/23 14:43 10/08/23 16:55 10/08/23 14:43 10/08/23 14:43 10/08/23 15:50 10/08/23 15:50 Oxygen Delivery Method Room Air Weight: 138 lb 3.677 oz Body Mass Index (BMI) 24.5 Lab / Micro Data 10/08/23 09:20 10/08/23 09:20 Labs: Laboratory Results - last 24 hr 10/08/23 09:20: WBC 10.0, RBC 3.84 L, Hgb 12.2, Hct 37.8, MCV 98.4, MCH 31.8, MCHC 32.3, RDW Std Deviation 47.4 H, RDW Coeff of Milvia 13.2, Plt Count 142 L, MPV 13.4 H, Sodium 139, Potassium 3.7, Chloride 103, Carbon Dioxide 31.0, Anion Gap 5, BUN 18, Creatinine 1.02, Estim Creat Clear Calc 37.99, Est GFR (MDRD) Af Amer 67, Est GFR (MDRD) Non-Af 55 L, BUN/Creatinine Ratio 17.6, Glucose 94, Calcium 9.2, Troponin I High Sens 297 H* 10/08/23 10:49: PT 16.1 H, INR 1.3, APTT 40.2 H 10/08/23 11:32: Troponin I High Sens 239 H* 10/08/23 15:23: Troponin I High Sens 242 H*, TSH 0.58 Cardiology Labs/Tests 10/08/23 09:20: WBC 10.0, RBC 3.84 L, Hgb 12.2, Hct 37.8, MCV 98.4, MCH 31.8, MCHC 32.3, Plt Count 142 L, MPV 13.4 H, Sodium 139, Potassium 3.7, Chloride 103, Carbon Dioxide 31.0, Anion Gap 5, BUN 18, Creatinine 1.02, Est GFR (MDRD) Af Amer 67, Est GFR (MDRD) Non-Af 55 L, BUN/Creatinine Ratio 17.6, Glucose 94, Calcium 9.2 10/08/23 10:49: PT 16.1 H, INR 1.3, APTT 40.2 H Rhythm: EKG: ECHO: Stress Test: Cardiac Cath: PCI: CT Surgery: Holter monitor: EPS: PPM: CXR: Chest CT Scan: Radiography Diagnostic Testing: Radiology Impression Chest CTA 10/08/23 09:12 IMPRESSION: CTA chest examination, without a demonstrated pulmonary embolism or arterial dissection. Emphysema with lower lung atelectasis. Probable hiatal hernia. Electronically Signed: Goran Virgen MD at 11:03 EDT , Echocardiogram 10/08/23 12:46 Interpretation Summary The estimated ejection fraction is 60 %. No evidence for diastolic dysfunction. Ordering Physician: Shannan Licea Performed By: Jayesh Joyner RCS
[2023-10-08] MEDS: Furosemide 40 MG/4 ML Vial IV (17:59)
[2023-10-08 18:06] LABS: Partial Thromboplast Time 87.6 Seconds (24.1-36.2)
[2023-10-09 01:39] LABS: Partial Thromboplast Time 74.1 Seconds (24.1-36.2)
[2023-10-09 03:11] VITALS: BP 94/58; PULSE 69; RESP 16; TEMP 36.3; O2SAT 97
[2023-10-09 03:23] VITALS: BP 116/58
[2023-10-09 04:53] LABS: Absolute Lymphocyte Count 0.93 X10^3/uL (0.83-4.51); Absolute Neutrophil Count 5.8 X10^3/uL (2.0-7.7); Basophil# 0.02 X10^3/uL; Basophil% 0.3 % (0-1); Hematocrit 35.4 % (37-47); Lymphocyte # 0.93 X10^3/ul (0.83-4.51); Lymphocyte % 12.7 % (19-41); Mean Corp Hgb Conc 31.1 g/dL (32-36); Mean Corpuscular Volume 99.7 fL (81-99); Mean Platelet Vol. 13.6 fl (6.2-12.0); Monocyte# 0.49 X10^3/uL; Monocyte% 6.7 % (0-10); NRBC Flagged by Analyzer 0 % (0-5); Neutrophil # 5.84 X10^3/uL (2.7-7.7); Neutrophil % 79.6 % (47-70); Platelet Count 134 K/mm3 (150-450); RBC Distribution Width CV 12.8 % (11.6-14.6); Red Blood Count 3.55 M/mm3 (4.2-5.4); White Blood Count 7.3 K/mm3 (4.4-11.0)
[2023-10-09 05:15] LABS: Anion Gap 2 (5-15); BUN 25 mg/dL (7-18); BUN/Creat Ratio 23.6 RATIO (10-20); Calcium,Total 8.6 mg/dL (8.5-10.1); Chloride 106 mmol/L (98-107); Cholesterol 85 mg/dL (200); Creatinine, Serum 1.06 mg/dL (0.55-1.02); EST Glomerular Filtration Rate 53 mL/min (>60); Est Glom Filt Rate - Afr Amer 64 mL/min (>60); Estimated Creatinine Clearance 35.02 ml/min; Glucose 130 mg/dL (74-106); High Density Lipoprotein 36 mg/dL; Potassium 4.1 mmol/L (3.5-5.1); Sodium Level 139 mmol/L (136-145); Triglycerides 46 mg/dL; Very Low Density Lipoprotein 9 mg/dL (5-40)
[2023-10-09 08:02] VITALS: BP 104/54; PULSE 72; RESP 15; TEMP 36.4; O2SAT 100
[2023-10-09 08:08] VITALS: O2SAT 97
[2023-10-09 08:47] LABS: Partial Thromboplast Time 68.5 Seconds (24.1-36.2)
--- NOTE | 2023-10-09 12:00 | CASEMGMT ---
RN?CM?HOSTEL MANAGER?CM?to room to meet with patient for initial transition planning/care coordination?assessment.?RN?CM?introduced self and role at [facility].? Pt voices understanding and consents to?assessment?at this time.? Pt resting in bed in no distress at this time.? Pt is A/O at this time and answers all questions appropriately.?? Care providers, pharmacy, and demographics verified/updated at this time. PCP: Dr Hardy Specialists:MANUFACTURING COORDINATOR @ [facility], [facility] Preferred Pharmacy: [facility] Insurance: [employer] [facility] Prescription Benefit:?yes. Pt provided w/30-day Eliquis free trial offer card and instructed on use. Made aware to f/u with PCP or student outreach coordinator if refills are not affordable. She voices understanding. Living Will/HPOA:?Has LW and HCPOA, who is her brother, Bryan. LNOK: Brother, Bryan. Sister, Victoria Living Arrangements: Lives alone in one-story home w/basement where the laundry is. 1 step to enter into the home. Pt denies difficulty w/stairs, but states family could assist her w/laundry in basement, if needed. Pt states she is independent w/ADL's and IADL's. Family live nearby and able to help if needed. Transportation:?Pt states drives self and states no transportation concerns at this time.? DME: ? Denies using any DME and denies needs.? HHC/SNF: No hx of either. Pt wishes to return home and states has no concerns with going home at time of discharge.? PLAN:?Home? Mimi VALDEZN?RN?CM
--- NOTE | 2023-10-09 12:29 | STRESSREP ---
Stress Test Report Date: 10/09/2023 Procedure: Pharmacologic stress nuclear imaging study Indications: Chest pain Consent: Per the patient Procedure: The patient underwent pharmacologic (Regadenoson) evaluation with a peak heart rate of 85 beats per minute (60%predicted maximal heart rate) and a peak blood pressure of 122/60 mmHg. The baseline ECG demonstrated normal sinus rhythm, nonspecific ST-T changes. EKG during lexiscan infusion revealed no significant ischemic changes. EKG post infusion revealed no significant ischemic changes [There were no cardiac dysrhythmias pretest, during pharmacologic infusion, or recovery]. [There was no complaint of chest discomfort during pharmacologic infusion or recovery]. The examination was discontinued secondary to completion of protocol. Impression: 1. Lexiscan stress test test is negative for Lexiscan infusion induced EKG changes of ischemia. 2. Lexiscan stress test test is negative for Lexiscan infusion induced chest pain. 3. Results of the nuclear portion of the test is as below Myocardial perfusion imaging study: Technique: The patient was injected with 10.3 millicuries of technetium 99m Cardiolite and subsequently rest SPECT Cardiolite nuclear imaging was obtained in the horizontal long, vertical long, and short axis views. The patient underwent pharmacologic [Regadenoson 0.4mg] evaluation. Please see above for details. The patient was injected with 31.4 millicuries of technetium 99m Cardiolite and subsequently stress SPECT Cardiolite nuclear imaging was obtained in the horizontal long, vertical long, and short axis views. A gated Cardiolite study at peak stress was obtained. Interpretation: Rest and stress SPECT Cardiolite nuclear imaging status post realignment, normalization, and attenuation correction demonstrate extracardiac uptake adjacent to the inferior wall. However there appears to be overall normal myocardial radioisotope uptake with no definite evidence of significant ischemia or infarction. Due to extracardiac uptake adjacent to the inferior wall wall motion in this region cannot be assessed. The reported LVEF is greater than 55%. Impression: 1. There is no evidence of significant ischemia or infarction. 2. Estimated ejection fraction is greater than 55%. This note was generated with [employer] software. It may contain incorrect words, spelling, and punctuation that were not noted in checking the note before signing.
--- NOTE | 2023-10-09 13:49 | DS.PCM_ITS ---
Providers Date of Admission: 10/08/23 Date of Discharge: 10/09/23 Primary Care Physician: Dr. Mikael Hardy, DO Consultations 10/08/23 12:46 Consult: Cardiology Routine Consulting Provider: Tomeka Gastelum Reason for Consult: nstemi, afib EMERGENT Consult: No MD Notified: Yes Date Notified: 10/08/23 Time Notified: 12:10 Method of Notification: Text Reason For Visit: AFIB W/RVR, NSTEMI Diagnosis Discharge Diagnosis (1) Pleuritic chest pain: Status: Acute Code(s): R07.81 - Pleurodynia (2) Atrial fib/flutter, transient: Status: Acute Code(s): I48.91 - Unspecified atrial fibrillation; I48.92 - Unspecified atrial flutter (3) Non-ST elevated myocardial infarction: Status: Acute Code(s): I21.4 - Non-ST elevation (NSTEMI) myocardial infarction Plan #Afib with RVR * Admitted with a complaint of retrosternal burning chest pain which she thought was due to GERD. Found to be in A-fib with RVR on admission. * Rate subsequently normalized. * Initial troponin was 297 and trended down to 239. * Chest x-ray showed acute cardiopulmonary process. * Will check TSH * Consult cardiology. * Get 2D echo * Started on oral beta-doris as heart rate has improved. * Started on heparin drip #Non-STEMI * Patient did complain of retrosternal burning chest pain which sounds like angina. * Initial troponin was elevated at 297 but trended down to 239. This may be a type II non-STEMI due to the A-fib with RVR which is what could also have caused her burning chest symptoms. * 2D echo ordered. Started on p.o. aspirin * Cardiology consulted. Await recs. * #Hypertension: On amlodipine. IV hydralazine as needed #Hyperlipidemia: On statin. Will increase statin dose from 5 mg daily to 40 mg due to the non-STEMI. Check lipid panel. #Depression: On venlafaxine DVT prophylaxis: On heparin drip CODE STATUS: Full code * Patient counseled extensively about different types of CODE STATUS including full code, DNR CCA and DNR CCA. Patient elects to be full code. Total mthm-ol-vjrq time 17 minutes. Medications at Discharge Home Medications cholecalciferol (vitamin D3) 50 mcg (2,000 unit) capsule (Vitamin D3) 2,000 unit PO DAILY 07/09/16 gabapentin 300 mg capsule 600 mg PO DAILY 07/09/16 venlafaxine 150 mg capsule,extended release 24 hr 150 mg PO DAILY 07/09/16 amlodipine 10 mg tablet 10 mg PO DAILY 10/08/23 aspirin 81 mg tablet,delayed release (Adult Aspirin Regimen) 81 mg PO MOWEFR 10/08/23 atorvastatin 10 mg tablet 5 mg PO DAILY 10/08/23 calcium carbonate 1,200 mg PO DAILY 10/08/23 estradiol 0.01% (0.1 mg/gram) vaginal cream 1 appful vaginal MOWEFR 10/08/23 multivitamin (Daily Multi-Vitamin tablet) 1 tab PO DAILY 10/08/23 trospium 60 mg capsule,extended release 24 hr 60 mg PO DAILY 10/08/23 apixaban 5 mg tablet (Eliquis) 5 mg PO BID #60 tabs 10/09/23 metoprolol tartrate 25 mg tablet 25 mg PO BID #60 tabs 10/09/23 Hospital Course Operations None Procedures 2-D Echocardiogram Summary of Care Provided Minutes Spent on Discharge: 55 Hospital Course: HERMINIA RAHMAN, is a 78 F with a past medical history as outlined was admitted through the ED on 10/08/2023 with a complaint of retrosternal burning chest pain. 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 and arrived only 4 days ago. She started having retrosternal burning chest pain and thought it was due to GERD so she took a lot of Tums for it but it was not improving. She denied having similar symptoms while she was in [facility]. She denied any palpitations, shortness of breath, dizziness, nausea or vomiting or any other symptoms. Her symptoms were persistent so she decided to come into the ED. She denies any history of heart disease and any history of stents insertion. Review of systems otherwise negative. Vitals in the ED were blood pressure 105/55, pulse rate of 74, respiratory rate of 18 and temperature of 98.8 Fahrenheit. She was saturating 98% on room air. CBC showed WBC of 10 with hemoglobin of 12.2 and platelets of 142. INR was 1.3. Chemistry was unremarkable. Initial troponin was 297 and subsequently the delta trended down to 239. EKG showed A-fib with RVR. At the time I had seen her her heart rate was up in the 140s but subsequently came down to 74. She was admitted to be managed for new onset A-fib with RVR and non-STEMI. She was to be started on amiodarone drip but she converted to normal sinus rhythm when she got to the floor. She was placed on p.o. metoprolol 25 mg twice daily. She was placed on heparin drip. She had 2D echo which showed EF of 60% and no evidence of diastolic dysfunction. She therefore had a stress test on 10/09/2023 which showed no evidence of ischemia. Heparin was therefore discontinued and she was started on Eliquis. She remained stable and was discharged home on 10/09/2023. She is to follow-up with her primary care doctor and with cardiology within 1 to 2 weeks. Of note the elevated troponin was likely a troponin leak from the A- fib with RVR and not a true non-STEMI. Patient seen and examined prior to discharge. Her niece was by her bedside. She had no active complaints and had an uneventful night. She felt well enough to go home. Labs and vitals reviewed. Home medication reviewed and reconciled. Physical Exam Const alert, oriented x3 and no apparent distress General Appearance: cooperative, comfortable and well kempt Orientation / Consciousness: awake HEENT normocephalic, head/scalp atraumatic, hearing grossly normal bilaterally, moist oral mucous membranes and oropharynx normal Mouth: oral and palatal mucosa normal Eyes PERRL, EOMs intact bilaterally and conjunctivae normal Neck no lymphadenopathy and supple Resp normal respiratory effort, no retractions, no use of accessory muscles and clear to auscultation bilaterally Cardio S1 normal heart sound, S2 normal heart sound and no murmurs Cardio Narrative: afib, was initially in RVR, and subsequently rate normalised. GI normal to inspection, nondistended, normoactive bowel sounds, soft to palpation, non-tender and non-distended Extremity normal to inspection, full ROM and no clubbing, cyanosis or edema Skin no rashes or lesions noted and no wounds Neuro oriented x3, CN's II-XII intact bilaterally, moves all extremities and no focal motor deficits Sensorium / Orientation: awake and alert Motor Exam: strength 5/5 throughout Psych affect normal Weight / BMI Weight Weight: 138 lb 3.677 oz Body Mass Index (BMI) 24.5 ABG / Lab / Microbiology Data 10/09/23 04:35 10/09/23 04:35 Laboratory: Laboratory Results - last 24 hr 10/08/23 15:23: Troponin I High Sens 242 H*, TSH 0.58 10/08/23 17:36: APTT 87.6 H 10/09/23 01:20: APTT 74.1 H 10/09/23 04:35: WBC 7.3, RBC 3.55 L, Hgb 11.0 L, Hct 35.4 L, MCV 99.7 H, MCH 31.0, MCHC 31.1 L, RDW Std Deviation 47.0 H, RDW Coeff of Milvia 12.8, Plt Count 134 L, MPV 13.6 H, Immature Gran % (Auto) 0.700, Neut % (Auto) 79.6 H, Lymph % (Auto) 12.7 L, [place] % (Auto) 6.7, Eos % (Auto) 0.0, Baso % (Auto) 0.3, Absolute Neuts (auto) 5.8, Absolute Lymphs (auto) 0.93, Nucleated RBC % 0, Sodium 139, Potassium 4.1, Chloride 106, Carbon Dioxide 31.0, Anion Gap 2 L, BUN 25 H, C reatinine 1.06 H, Estim Creat Clear Calc 35.02, Est GFR (MDRD) Af Amer 64, Est GFR (MDRD) Non-Af 53 L, BUN/Creatinine Ratio 23.6 H, Glucose 130 H, Calcium 8.6, Triglycerides 46, Cholesterol 85, LDL Cholesterol 40, VLDL Cholesterol 9, HDL Cholesterol 36 L 10/09/23 07:54: APTT 68.5 H Radiography Diagnostic Testing: Radiology Impression Echocardiogram 10/08/23 12:46 Interpretation Summary The estimated ejection fraction is 60 %. No evidence for diastolic dysfunction. Ordering Physician: Shannan Licea Performed By: Jayesh Joyner RCS D/C Instructions Discharge Diet: Low fat / Low cholesterol Weight Bearing Status: Weight bearing as tolerated Call your doctor if you observe: Fever of 101 or Higher, Shortness of breath, Dizziness, Swelling in the ankles and Chest pain Meaningful Use Info Meaningful Use Meaningful Use Diagnoses (Choose all that apply): None applicable Ischemic Stroke Statin Dosing Therapy Reference: STATIN DOSE THERAPY REFERENCE: * Patients > 75 years receive moderate or high dose statin therapy. * Patients 75 years or YOUNGER should receive HIGH intensity statin dose unless contraindicated. You will be required to document reason for non-treatment if statin daily dose does not meet guidelines. HIGH DOSE STATIN THERAPY DAILY Atorvastatin > than or = to 40 mg Rosuvastatin > than or = to 20 mg Amlodipine + Atorvastatin > than or = to 2.5/40 mg Ezetimibe + Simvastatin 10/80 mg Simvastatin 80mg Discharge Plan Admission Admit Date/Time: 10/08/23 12:01 Primary Reason for Your Visit: afib with RVR Attending Provider: Shannan Licea Primary Care Provider: Mikael Hardy Consulting Providers: Tomeka Gastelum Instructions Patient Instructions: AFib Dc, AFib Preventing Stroke Discharge Orders/Prescriptions Prescriptions: New metoprolol tartrate 25 mg Tablet 25 mg PO BID Qty: 60 2RF Eliquis 5 mg tablet 5 mg PO BID Qty: 60 2RF Continued venlafaxine 150 MG capsule,extended release 24hr 150 mg PO DAILY gabapentin 300 MG capsule 600 mg PO DAILY cholecalciferol (vitamin D3) [Vitamin D3] 2,000 UNIT capsule 2,000 unit PO DAILY amlodipine 10 mg tablet 10 mg PO DAILY estradiol 0.01 % (0.1 mg/gram) cream 1 appful vaginal MOWEFR Patient Comments: PT STATES SHE DOESNT ALWAYS REMEMBER TO USE. atorvastatin 10 MG tablet 5 mg PO DAILY trospium 60 mg capsule,extended release 24hr 60 mg PO DAILY aspirin [Adult Aspirin Regimen] 81 mg tablet,delayed release (DR/EC) 81 mg PO MOWEFR multivitamin [Daily Multi-Vitamin] Tablet 1 tab PO DAILY calcium carbonate 600 mg calcium (1,500 mg) tablet 1,200 mg PO DAILY Discontinued atovaquone-proguanil 250-100 mg tablet 1 tab PO DAILY Patient Comments: PT STATES SHE TOOK THIS MED THIS MORNING, BUT IS UNSURE IF TODAYS DOSE WAS THE LAST ONE, OR IF SHE HAS ONE MORE FOR TOMORROW. Referrals / Follow Up: Compa Peck MD [Med Staff - Active Staff] - Within 1 Week Mikael Hardy DO [Primary Care Provider] - Within 1 Week Disposition Disposition (needs filled in before D/C Order can be placed): Home, Self Care Charges/Coding Visit Charges Inpatient E&M: 22661 Disch Hosp >30min
[2023-10-09 15:00] VITALS: BP 121/66; PULSE 84
== END 2023-10-09 14:52 | disposition home or self-care (01) | DRG 282 ==
LOC: ED 10:52 → PCU 10-09 13:47
PROVIDERS: Admitting Provider Student in an Organized Health Care Education/Training Program; Emergency Provider Emergency Medicine; PCP Student in an Organized Health Care Education/Training Program; Visit Provider Student in an Organized Health Care Education/Training Program
DX: I48.91 Unspecified atrial fibrillation (principal); I48.92 Unspecified atrial flutter; I21.A1 Myocardial infarction type 2; I10 Essential (primary) hypertension; F32.A Depression, unspecified; E78.5 Hyperlipidemia, unspecified; Z87.891 Personal history of nicotine dependence; Z79.899 Other long term (current) drug therapy; R07.89 Other chest pain; R06.02 Shortness of breath
CPT/HCPCS: 36415; 71275; 78452; 80048; 80061; 84443; 84484; 85025; 85027; 85610; 85730; 93005; 93017; 93306; 96365; 96366; 96375; 99285; A9500; Q9957; Q9967; A4216; J1940; J2405; J2785

== ENCOUNTER 2023-10-21 17:50 | Emergency (ER) | payer MEDICARE, SELFPAY ==
[2023-10-21 17:51] VITALS: BP 142/68; PULSE 94; RESP 20; TEMP 36.1; O2SAT 100; BMI 24.6
[2023-10-21 19:10] LABS: Absolute Lymphocyte Count 2.57 X10^3/uL (0.83-4.51); Absolute Neutrophil Count 4.7 X10^3/uL (2.0-7.7); Basophil# 0.07 X10^3/uL; Basophil% 0.9 % (0-1); Eosinophil# 0.32 X10^3/uL; Eosinophils% 3.9 % (0-5); Hematocrit 40.1 % (37-47); Hemoglobin 12.6 g/dL (12.0-15.0); Lymphocyte # 2.57 X10^3/ul (0.83-4.51); Lymphocyte % 31.3 % (19-41); Mean Corp Hgb Conc 31.4 g/dL (32-36); Mean Corpuscular Hgb 31.2 pg (27.0-32.0); Mean Corpuscular Volume 99.3 fL (81-99); Mean Platelet Vol. 11.8 fl (6.2-12.0); Monocyte# 0.54 X10^3/uL; Monocyte% 6.6 % (0-10); NRBC Flagged by Analyzer 0 % (0-5); Neutrophil # 4.69 X10^3/uL (2.7-7.7); Neutrophil % 56.9 % (47-70); Platelet Count 197 K/mm3 (150-450); RBC Distribution Width CV 13.4 % (11.6-14.6); RBC Distribution Width SD 48.2 fl (35.1-43.9); Red Blood Count 4.04 M/mm3 (4.2-5.4); White Blood Count 8.2 K/mm3 (4.4-11.0)
[2023-10-21 19:28] LABS: Anion Gap 5 (5-15); BUN 31 mg/dL (7-18); BUN/Creat Ratio 23.7 RATIO (10-20); Calcium,Total 9.4 mg/dL (8.5-10.1); Chloride 105 mmol/L (98-107); Creatinine, Serum 1.31 mg/dL (0.55-1.02); EST Glomerular Filtration Rate 42 mL/min (>60); Est Glom Filt Rate - Afr Amer 50 mL/min (>60); Estimated Creatinine Clearance 30.65 ml/min; Glucose 101 mg/dL (74-106); Potassium 3.9 mmol/L (3.5-5.1); Sodium Level 140 mmol/L (136-145); Troponin-I HS (w/2H Reflex) 56 pg/mL (3.0-54.0)
--- NOTE | 2023-10-21 19:40 | RAD_ITS ---
EXAM: XR CHEST, 1 VIEW CLINICAL INDICATION: chest pain TECHNIQUE: Frontal view of the chest. COMPARISON: 07/09/2016 FINDINGS: LUNGS AND PLEURAL SPACES: Interstitial prominence and hyperinflation consistent with COPD. No definite focal pneumonia. No pneumothorax. No effusion. HEART: No significant abnormality. Cardiac silhouette not enlarged. MEDIASTINUM: Central airways and mediastinal contour are unremarkable. BONES/JOINTS: Degenerative changes in the spine and shoulders. No acute fracture. SOFT TISSUES: Right chest wall surgical clips. VASCULATURE: Atherosclerosis. RAD/Chest 1 View (Portable) IMPRESSION: Interstitial prominence and hyperinflation consistent with COPD. No definite focal pneumonia. Electronically Signed: Christiano Jimenez DO at 20:18 EDT ,
--- NOTE | 2023-10-21 19:44 | EX.ED.DYSGE1 ---
HPI History of Present Illness Chief Complaint: Palpitations Informant: patient Onset/Context/Timing Onset: Today Context: Sudden Onset Timing: Continuous Quality: Lightheaded Location: Generalized Worsened by: Nothing Relieved by: Eating watermelon Narrative Narrative: Patient presents with palpitations and lightheadedness that began today. 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 Patient states that her Fitbit noticed that her heart rate was increasing. Patient states that her Fitbit registered a heart rate of 124. Patient states she was feeling lightheaded. Patient denies any spinning sensation. Patient denies any nausea or vomiting. Patient denies any headaches. Patient states her symptoms are improving. Patient states she did use some watermelon which seemed to help with her symptoms. [facility] Medical History (Updated 10/21/23 @ 22:[address] Vinnie Garcia, DO) Atrial fib/flutter, transient Non-ST elevated myocardial infarction Hypertension High blood cholesterol Home Medications ?Medication ?Instructions ?Recorded ?Last Taken ?Type cholecalciferol (vitamin D3) 50 2,000 unit PO DAILY 07/09/16 10/08/23 History mcg (2,000 unit) capsule (Vitamin D3) gabapentin 300 mg capsule 600 mg PO DAILY 07/09/16 10/08/23 History amlodipine 10 mg tablet 10 mg PO DAILY 10/08/23 10/08/23 History aspirin 81 mg tablet,delayed 81 mg PO MOWEFR 10/08/23 10/08/23 History release (Adult Aspirin Regimen) atorvastatin 10 mg tablet 5 mg PO DAILY 10/08/23 10/08/23 History calcium carbonate 1,200 mg PO DAILY 10/08/23 10/08/23 History estradiol 0.01% (0.1 mg/gram) 1 appful vaginal MOWEFR 10/08/23 10/06/23 History vaginal cream multivitamin (Daily Multi-Vitamin 1 tab PO DAILY 10/08/23 Unknown History tablet) apixaban 5 mg tablet (Eliquis) 5 mg PO BID #180 tabs 10/20/23 Unknown Rx atovaquone 250 mg-proguanil 100 mg 1 tab PO DAILY 10/20/23 Unknown History tablet (Malarone) hydroxyzine HCl 25 mg tablet 25 mg PO TID PRN 10/20/23 Unknown History metoprolol tartrate 25 mg tablet 25 mg PO BID #180 tabs 10/20/23 Unknown Rx omeprazole 40 mg capsule,delayed 40 mg PO DAILY #90 caps 10/20/23 Unknown Rx release Allergy/AdvReac Type Severity Reaction Status Date / Time acetaminophen (From Vicodin) AdvReac Nausea Verified 10/21/23 17:51 hydrocodone (From Vicodin) AdvReac Nausea Verified 10/21/23 17:51 Surgical History (Updated 10/21/23 @ 19:[address] Vinnie Garcia DO) Hx of appendectomy Hx of oophorectomy Hx of hysterectomy Hx of right mastectomy Social History Smoking Status: Former smoker ROS ROS ED Constitutional Constitutional ED: Denies chills or fever(s) Eyes Eyes: Denies blurry vision or change in vision ENT ENT ED: Denies rhinorrhea or sore throat Cardiovascular Cardiovascular: Reports palpitations; Denies chest pain Respiratory/Chest Respiratory/Chest: Reports dyspnea; Denies cough Gastrointestinal Gastrointestinal: Denies nausea or vomiting Genitourinary Genitourinary ED: Denies dysuria or hematuria Musculoskeletal Musculoskeletal: Denies back pain or neck pain Integumentary Denies abscess or rash Neurologic Neurologic: Denies headache(s) or weakness Allergic/Immunologic Allergic/Immunologic ED: Denies mouth swelling or urticaria EXAM Physical Exam Const Vital Signs: 10/21/23 17:51 10/21/23 19:32 10/21/23 19:32 Temperature 97 F L Temperature Source Temporal Pulse Rate 94 Respiratory Rate 20 H Respiratory Effort Normal Blood Pressure 142/68 H Blood Pressure Mean 92 Pulse Ox 100 Oxygen Delivery Method Room Air Room Air 10/21/23 19:51 10/21/23 21:00 Temperature Temperature Source Pulse Rate 73 71 Respiratory Rate 16 16 Respiratory Effort Blood Pressure 131/64 H 150/55 H Blood Pressure Mean 86 86 Pulse Ox 99 99 Oxygen Delivery Method Room Air Room Air Positive well nourished and well developed General Appearance ED: well developed and NAD HEENT Reports moist mucous membranes Neck supple and no JVD Resp normal respiratory effort and clear to auscultation bilaterally Cardio regular rate and regular rhythm GI non-tender and non-distended Palpation: soft Extremity normal to inspection General Extremety ED: Negative for edema or tenderness General Extremity: Negative for edema Neuro oriented x3, CN's II-XII intact bilaterally and no sensory deficits noted Sensorium / Orientation: alert Motor Exam: strength 5/5 throughout [facility] Lab Data Attestation: I reviewed the patient's lab results. Lab results narrative: CBC was reviewed and was within normal limits. Basic metabolic profile was reviewed. BUN was slightly elevated at 31 and creatinine was 1.31. These are slightly increased from previous results. High-sensitivity troponin was reviewed and was normal at 56. 2-hour repeat high-sensitivity troponin was reviewed and was normal at 52. These are improved from previous results. Labs: Laboratory Results - last 24 hr 10/21/23 10/21/23 18:50 20:49 WBC 8.2 RBC 4.04 L Hgb 12.6 Hct 40.1 MCV 99.3 H MCH 31.2 MCHC 31.4 L RDW Std Deviation 48.2 H RDW Coeff of Milvia 13.4 Plt Count 197 MPV 11.8 Immature Gran % (Auto) 0.400 Neut % (Auto) 56.9 Lymph % (Auto) 31.3 [place] % (Auto) 6.6 Eos % (Auto) 3.9 Baso % (Auto) 0.9 Absolute Neuts (auto) 4.7 Absolute Lymphs (auto) 2.57 Nucleated RBC % 0 Sodium 140 Potassium 3.9 Chloride 105 Carbon Dioxide 30.0 Anion Gap 5 BUN 31 H Creatinine 1.31 H Estim Creat Clear Calc 30.65 Est GFR (MDRD) Af Amer 50 L Est GFR (MDRD) Non-Af 42 L BUN/Creatinine Ratio 23.7 H Glucose 101 Calcium 9.4 Troponin I High Sens 56 H 52 Radiography Diagnostic Testing: Clinical Impression(s) from Imaging Studies Chest X-Ray 10/21/23 19:40 IMPRESSION: Interstitial prominence and hyperinflation consistent with COPD. No definite focal pneumonia. Electronically Signed: Christiano Jimenez DO at 20:18 EDT , Portable 1 view chest x-ray was obtained. On my independent interpretation, lung french show hyperinflation consistent with COPD. There is normal cardiac silhouette. Bony thorax is normal. There is no acute process noted. Radiologist also interpreted the x-ray and agrees. EKG Initial EKG: Attestation: I personally reviewed and interpreted this EKG as follows: Interpretation: Sinus Rhythm (84) and No Acute Injury Pattern Comments: EKG was obtained. On my independent interpretation, it showed a normal sinus rhythm with occasional PACs with a rate of 84. GA interval, QRS interval, and QTc intervals were all normal. [place] was normal. There are no acute ST or T wave changes. Prior EKG tracings: available for review Prior: Unchanged (10/20/2023) Treatment and Re-Evaluation :: Patient was given aspirin here. Patient was placed on continuous dispatch clerk. Patient had no episodes of tachycardia or palpitations here in the emergency department. Patient was advised of her findings. Patient was instructed to drink plenty of fluids. Patient was instructed to follow-up with her primary care physician in 5 to 7 days. Patient was instructed return if worse in any way. Patient understood and was agreeable with the plan. All questions were answered Discharge Plan Triage Chief Complaint: Palpitations Other Complaint: Dizziness ED Provider: Vinnie Garcia Dx/Rx/DC Orders Clinical Impression: Heart palpitations, Hypertension Instructions: ED Palpitations Prescriptions: No Action atovaquone-proguanil [Malarone] 250-100 mg tablet 1 tab PO DAILY Rx Instructions: must administer with food, preferably a high-fat meal hydroxyzine HCl 25 mg tablet 25 mg PO TID PRN Eliquis 5 mg tablet 5 mg PO BID Qty: 180 3RF metoprolol tartrate 25 mg tablet 25 mg PO BID Qty: 180 3RF omeprazole 40 mg capsule,delayed release(DR/EC) 40 mg PO DAILY Qty: 90 3RF gabapentin 300 MG capsule 600 mg PO DAILY cholecalciferol (vitamin D3) [Vitamin D3] 2,000 UNIT capsule 2,000 unit PO DAILY amlodipine 10 mg tablet 10 mg PO DAILY estradiol 0.01 % (0.1 mg/gram) cream 1 appful vaginal MOWEFR Patient Comments: PT STATES SHE DOESNT ALWAYS REMEMBER TO USE. atorvastatin 10 MG tablet 5 mg PO DAILY aspirin [Adult Aspirin Regimen] 81 mg tablet,delayed release (DR/EC) 81 mg PO MOWEFR multivitamin [Daily Multi-Vitamin] Tablet 1 tab PO DAILY calcium carbonate 600 mg calcium (1,500 mg) tablet 1,200 mg PO DAILY Primary Care Provider: Mikael Hardy Referrals: Mikael Hardy, [Primary Care Provider] - 5-7 Days Print Language: Latvian Disposition Disposition: Home, Self Care
[2023-10-21 19:51] VITALS: BP 131/64; PULSE 73; RESP 16; O2SAT 99
[2023-10-21] MEDS: Aspirin 81 MG TAB.CHEW 324 MG PO (19:58)
[2023-10-21 21:00] VITALS: BP 150/55; PULSE 71; RESP 16; O2SAT 99
[2023-10-21 21:02] LABS: Reflex Troponin-HS? (from REC) Y
[2023-10-21 21:28] LABS: Troponin-I HS 52 pg/mL (3.0-54.0)
[2023-10-21 22:38] VITALS: BP 148/70; PULSE 71; RESP 15; TEMP 36.3; O2SAT 97
== END 2023-10-21 22:44 | disposition home or self-care (01) ==
PROVIDERS: Emergency Provider Emergency Medicine; PCP Student in an Organized Health Care Education/Training Program; Visit Provider Emergency Medicine
DX: R00.2 Palpitations (principal); R42 Dizziness and giddiness; I10 Essential (primary) hypertension; Z87.891 Personal history of nicotine dependence; E78.00 Pure hypercholesterolemia, unspecified; I25.2 Old myocardial infarction
CPT/HCPCS: 71045; 80048; 84484; 85025; 93005; 99285; A4216